=== PATIENT | male | born 1995 | race Caucasian/White ===

== ENCOUNTER 2019-01-07 17:18 | Emergency (ER) | payer BC ==
--- NOTE | 2019-01-07 18:17 | XRAY Report ---
Reason: shortness of breath Procedure Date: 01/07/2019 Accession Number: [id number] / [id number] Procedure: XR - Chest 2 View X-Ray CPT Code: 95584 FULL RESULT: EXAM: CHEST RADIOGRAPHY EXAM DATE: 01/07/2019 06:00 PM. CLINICAL HISTORY: Shortness of breath. COMPARISON: CHEST 2 VIEW PA/LAT 07/21/2013 9:16 PM. TECHNIQUE: 2 views. FINDINGS: Lungs/Pleura: No focal opacities evident. No pleural effusion. No pneumothorax. Normal volumes. Mediastinum: Heart and mediastinal contours are unremarkable. Other: None. IMPRESSION: Normal 2-view chest radiography. [facility]
--- NOTE | 2019-01-07 18:18 | ED Physician Documentation ---
History of Present Illness - Stated complaint Stated Complaint: LT SIDE PX/FEVER - Chief complaint Chief Complaint: Resp - History obtained from History obtained from: Patient, Family - History of Present Illness Pain level max: 5 Pain level now: 0 Improved by: Nothing - Additonal information Additional information: 23-year-old male presents to the emergency department with left-sided chest and rib pain intermittently for the past 2 years. Last for 2-3 minutes at a time and then resolves. Today's episode was more intense than usual. He was evaluated at [facility] when he was a small child and found to have PVCs. He states that this is often worsened by deep breathing. Describes it as a sharp pain. Currently is asymptomatic. No recent fevers, cough, congestion. Review of Systems Ten Systems: 10 systems reviewed and negative Constitutional: reports: Fever. denies: Chills Ears: reports: Ear pain (Right ear) Nose: reports: Rhinorrhea / runny nose, Congestion Throat: denies: Sore throat Cardiac: reports: Palpitations Respiratory: denies: Cough, Wheezing GI: denies: Abdominal Pain, Nausea, Vomiting, Diarrhea Skin: denies: Rash Musculoskeletal: denies: Neck pain, Back pain Neurologic: denies: Headache PD PAST MEDICAL HISTORY - Past Medical History Past Medical History: Yes Respiratory: Asthma Psych: ADD/ADHD - Past Surgical History Past Surgical History: Yes HEENT: Myringotomy (tubes) - Present Medications Home Medications: Ambulatory Orders Medication Instructions Recorded Confirmed Azithromycin [Zithromax] 0 mg PO DAILY #6 tablet 01/07/19 - Allergies Allergies/Adverse Reactions: Allergies Allergy/AdvReac Type Severity Reaction Status Date / Time amoxicillin Allergy Rash Verified 01/07/19 17:23 - Social History Does the pt smoke?: No Smoking Status: Never smoker Does the pt drink ETOH?: No Does the pt have substance abuse?: No - Immunizations Immunizations are current?: Yes - POLST Patient has POLST: No PD ED PE NORMAL - Vitals Vital signs reviewed: Yes - General General: Alert and oriented X 3, No acute distress, Well developed/nourished - HEENT HEENT: PERRL, Moist mucous membranes, Other (Left tympanic membrane is normal. Right tympanic membrane is erythematous, dull, bulging with loss of landmarks. Purulent fluid present.) - Neck Neck: Supple, no meningeal sign, No adenopathy - Cardiac Cardiac: RRR, Strong equal pulses - Respiratory Respiratory: No respiratory distress, Clear bilaterally - Abdomen Abdomen: Soft, Non tender, Non distended - Derm Derm: Warm and dry - Extremities Extremities: No edema, No calf tenderness / cord - Neuro Neuro: Alert and oriented X 3 - Psych Psych: Normal mood, Normal affect Results - Vitals Vitals: Oxygen O2 Source Room air - EKG (time done) 1818 Rate: Rate (enter#) (78) Rhythm: NSR, Other (frequent PVC's) Noti: Normal Intervals: Normal AK QRS: Normal Ischemia: Normal ST segments - Labs Labs: Laboratory Tests 01/07/19 01/07/19 01/07/19 18:30 18:30 18:30 WBC 13.0 H RBC 4.88 Hgb 14.7 Hct 42.7 MCV 87.4 MCH 30.1 MCHC 34.4 RDW 13.0 Plt Count 242 MPV 8.8 Neut # (Auto) 11.0 H Lymph # (Auto) 1.6 [place] # (Auto) 0.4 Eos # (Auto) 0.0 Baso # (Auto) 0.0 Absolute Nucleated RBC 0.00 Nucleated RBC % 0.0 Sodium 136 Potassium 3.4 L Chloride 102 Carbon Dioxide 26 Anion Gap 8.0 BUN 20 Creatinine 0.9 Estimated GFR (MDRD) 106 Glucose 89 Calcium 8.9 Phosphorus 3.6 Magnesium 2.3 Total Bilirubin 0.8 AST 29 ALT 23 Alkaline Phosphatase 65 Troponin I 0.05 Total Protein 8.0 Albumin 4.4 Globulin 3.6 Albumin/Globulin Ratio 1.2 Lipase 31 PD MEDICAL DECISION MAKING - ED course Complexity details: reviewed results, re-evaluated patient, considered differential, d/w patient, d/w family ED course: 23-year-old male presents to the emergency department with frequent PVCs on the monitor that are causing his symptoms. He was given 2 g of magnesium in the least. This is been an ongoing issue for the last several years. We will have him follow-up with his doctor for further care. They may consider starting him on calcium channel blockers or beta blockers. Patient also has a right acute otitis media and will treat for this. Patient counseled regarding signs and symptoms for which I believe and urgent re-evaluation would be necessary. Patient with good understanding of and agreement to plan and is comfortable going home at this time This document was made in part using voice recognition software. While efforts are made to proofread this document, sound alike and grammatical errors may occur. Departure - Departure Disposition: 01 Home, Self Care Clinical Impression: PVC (premature ventricular contraction), Right acute otitis media Chest pain Qualifiers: Chest pain type: unspecified Qualified Code(s): R07.9 - Chest pain, unspecified Condition: Good Instructions: ED Chest Pain Atypical Unkn Cause, ED Otitis Media Acute Adult, ED Palpitations Follow-Up: your,doctor in 3 days [Other] Prescriptions: Azithromycin [Zithromax] 0 mg PO DAILY #6 tablet Comments: Follow-up with your doctor for further care. If the PVCs are continuously bothering him, they can start him on medication, they may want to perform an echocardiogram or further testing on his heart first. Take all antibiotics until gone. Return if he worsens Discharge Date/Time: 01/07/19 20:31
[2019-01-07] MEDS ORDERED: MAGNESIUM SULFATE 2 GRAM 2 GM/50 ML BAG IV ONE (18:26)
[2019-01-07 18:48] LABS: BASOPHILS % (AUTO) 0.2 %; EOSINOPHILS % (AUTO) 0.1 %; HGB - HEMOGLOBIN 14.7 g/dL (14.0-18.0); LYMPHOCYTES # (AUTO) 1.6 10^3/uL (1.5-3.5); MEAN CORPUSCULAR HEMOGLOBIN 30.1 pg (27.0-31.0); MEAN CORPUSCULAR HGB CONC 34.4 g/dL (32.0-36.0); MEAN CORPUSCULAR VOLUME 87.4 fL (80.0-94.0); MEAN PLATELET VOLUME 8.8 fL (7.4-11.4); MONOCYTES # (AUTO) 0.4 10^3/uL (0.0-1.0); MONOCYTES % (AUTO) 3.3 %; NEUTROPHILS % (AUTO) 84.4 %; PLT - PLATELET COUNT 242 10^3/uL (130-450); RED BLOOD COUNT 4.88 10^6/uL (4.70-6.10)
[2019-01-07 18:54] LABS: ALBUMIN 4.4 g/dL (3.2-5.5); ALBUMIN/GLOBULIN RATIO 1.2 (1.0-2.2); BILIRUBIN,TOTAL 0.8 mg/dL (0.2-1.0); CALCIUM 8.9 mg/dL (8.5-10.3); CREATININE 0.9 mg/dL (0.6-1.2); MAGNESIUM 2.3 mg/dL (1.7-2.8); PHOSPHORUS 3.6 mg/dL (2.5-4.6)
[2019-01-07 20:00] VITALS: BP 135/72
== END 2019-01-07 20:31 | disposition home or self-care (01) ==
LOC: ED 17:18
DX: I49.3 Ventricular premature depolarization (principal); H66.91 Otitis media, unspecified, right ear
CPT/HCPCS: 36415; 71046; 80053; 83690; 83735; 84100; 84484; 85025; 93005; 96365; 96366; 99284